=== PATIENT | male | born 1975 | race Caucasian/White ===

== ENCOUNTER 2020-05-23 17:10 | Emergency (ER) | payer OTHER, SELFPAY ==
--- NOTE | ~2020-05-23 | XR_ITS ---
EXAMINATION: XR chest 2V DATE: 05/23/2020 17:52 INDICATION: Left-sided chest pain TECHNIQUE: PA and lateral views of the chest are obtained. COMPARISON: None available FINDINGS: The lungs are free of acute opacities. There is no pleural effusion or pneumothorax. The ca rdiomediastinal silhouette is normal. The visualized bones and soft tissues are unremarkable. IMPRESSION: 1. No acute cardiopulmonary abnormality. Reviewed, dictated and finalized at location A. ING COORDINATOR
[2020-05-23 17:16] VITALS: BP 171/99; PULSE 112; PULSE 118; RESP 20; TEMP 36.6; O2SAT 100
--- NOTE | 2020-05-23 17:20 | ECG_ITS ---
Measurements Intervals [place] Rate: 113 P: 34 IA: 152 QRS: -27 QRSD: 96 T: 45 QT: 306 QTc: 421 Interpretive Statements SINUS TACHYCARDIA DELAYED PRECORDIAL R/S TRANSITION ABNORMAL ECG Electronically Signed On 05-24-2020 8:46:18 TRAIN STATION AGENT by Rey Narvaez D.O.
[2020-05-23 17:24] VITALS: PULSE 123
[2020-05-23 17:34] LABS: Basophils Absolute Auto 0.1 K/mm3 (0.0-0.1); Basophils Percent Auto 0.6 % (0.2-1.2); Eosinophils Absolute Auto 0.2 K/mm3 (0-0.3); Eosinophils Percent Auto 1.6 % (0-4.4); Hematocrit 49.7 % (42.0-52.0); Hemoglobin 17.1 g/dL (14.0-18.0); Immature Granulocyte Absolute 0.02 K/mm3 (0.00-0.031); Immature Granulocyte Percent A 0.2 % (0-0.5); Lymphocytes Absolute Auto 1.92 K/mm3 (0.9-3.2); Lymphocytes Percent Auto 19.3 % (18.3-44.2); Mean Corpuscular HGB Conc 34.4 g/dl (32-36); Mean Corpuscular Hemoglobin 28.7 pg (26-34); Mean Corpuscular Volume 83.4 fl (80-100); Mean Platelet Volume 9.3 fl (7.4-10.4); Monocytes Absolute Auto 0.6 K/mm3 (0.1-0.6); Monocytes Percent Auto 5.8 % (2.6-8.5); Neutrophils Absolute Auto 7.2 K/mm3 (1.3-6.7); Neutrophils Percent Auto 72.5 % (45.5-73.1); Platelet Count Result 281 k/mm3 (150-375); Red Blood Count 5.96 M/mm3 (4.6-6.20)
[2020-05-23 17:44] LABS: INR 0.9; Prothrombin Time 12.3 Seconds (11.1-14.7)
[2020-05-23 17:45] LABS: Partial Thromboplastin Time 28.1 SECONDS (22.3-36.8)
[2020-05-23 17:49] LABS: Anion Gap 9 mmol/L (8-16); Blood Urea Nitrogen 15 mg/dL (9-20); Calcium 9.6 mg/dL (8.4-10.2); Carbon Dioxide 33 mmol/L (22-30); Chloride 100 mmol/L (98-107); Estimated CRCL calculation 68 ml/min; Estimated Glomerular Filt Rate > 60; Glucose 108 mg/dL (75-110); Sodium 142 mmol/L (137-145)
[2020-05-23 17:50] VITALS: BP 132/108; PULSE 113; RESP 22; O2SAT 99
[2020-05-23 18:01] VITALS: BP 122/94; PULSE 116; RESP 22; O2SAT 97
[2020-05-23 18:01] LABS: Troponin I < 0.012 ng/mL (0.000-0.034)
[2020-05-23] MEDS: ASPIRIN 81 MG CHEWABLE TABLET 324 MG PO (18:09)
[2020-05-23 18:34] VITALS: BP 116/87; PULSE 115; RESP 20; O2SAT 97
--- NOTE | 2020-05-23 18:34 | ED.GENADULT ---
HPI - General Adult General Chief complaint: Chest Pain Stated complaint: CP Time Seen by Provider: 05/23/20 17:20 Source: patient Mode of arrival: ambulatory Limitations: no limitations History of Present Illness HPI narrative: Patient presenting from [facility] primary care's office Ayan Zelaya for EKG and troponin further evaluation as the patient presented to his establish care appointment complaining of 2 weeks of intermittent chest pain. Patient states he has a mother and grandmother who had heart attacks in their 40s and the provider became concerned as the EKG machine was not working. Patient denies shortness of breath, diaphoresis, radiation of chest pain. Patient states at this time he feels very dull pressure but denies any sharp stabbing pains. Patient denies fever, chills, nausea, vomiting, diarrhea. Related Data Home Medications Medication Instructions Recorded Confirmed No Home Medications 05/23/20 05/23/20 Allergies Allergy/AdvReac Type Severity Reaction Status Date / Time No Known Allergies Allergy Unknown Verified 05/23/20 17:20 Review of Systems Review of Systems: Narrative: CONSTITUTIONAL: Denies fever, chills, or sweats. EYES: Denies visual changes, redness, or discharge. ENT: Denies rhinorrhea, congestion, sore throat, or otalgia. CARDIOVASCULAR: Reports chest pressure denies chest pain, palpitations, or edema. RESPIRATORY: Denies cough or dyspnea. GASTROINTESTINAL: Denies abdominal pain, nausea, vomiting, or diarrhea. GENITOURINARY: Denies dysuria or hematuria. SKIN: Denies rash or itching. MUSCULOSKELETAL: Denies back pain, joint pain, or myalgia. NEUROLOGIC: Denies headache, numbness, dizziness, or weakness. PSYCHIATRIC: Denies anxiety or depression. [facility] Family History Family History (Updated 01/19/14 @ 07:13 by DOCTOR UNKNOWN) Mother Family history of coronary artery disease Grandparent Diabetes mellitus Social History Social History Smoking status: Never smoker Alcohol intake: current Exam Narrative: Exam Narrative: GENERAL: Well-appearing, well-nourished, and in no acute distress. Patient smiling and talking normally. Patient does not appear to be in any discomfort. HEAD: Normocephalic, atraumatic. EYES: PERRLA and EOMI. NECK: Supple. No adenopathy or masses. CHEST: Clear to auscultation. No respiratory distress. No wheezes rales or rhonchi HEART: Slightly tachycardic rate and normal rhythm. No murmur heard. Normal peripheral pulses. EXTREMITIES: Normal range of motion. No edema. SKIN: Warm, dry, no rash. NEURO: No focal deficits. Alert and oriented x3. PSYCH: Normal mood and affect. Course Vital Signs Vital signs: Vital Signs Temperature 97.8 F 05/23/20 17:16 Pulse Rate 112 H 05/23/20 17:16 Respiratory Rate 05/23/20 17:16 Blood Pressure 171/99 H 05/23/20 17:16 Pulse Oximetry 10 L 05/23/20 17:16 Temperature 97.8 F 05/23/20 17:16 Pulse Rate 110 H 05/23/20 19:01 Respiratory Rate 22 H 05/23/20 19:01 Blood Pressure 116/87 05/23/20 19:01 Pulse Oximetry 98 05/23/20 19:01 Medical Decision Making MDM Narrative Medical decision making narrative: Patient is not toxic or diaphoretic. Patient initially presented with elevated blood pressure but his blood pressure has decreased to 116/87. He has some mild tachycardia but denies any chest pain, pain with inspiration or shortness of breath. Patient states that his pressure is very mild and not concerning. He has been instructed of the importance of following up with PCP for further evaluation of his symptoms and possible ECHO, stress test, and cardiology referral. He has been instructed to return to the ER if he has any emergent symptoms. Patient is in agreement with plan and is ready to be discharged home. Vital Signs Vital Signs: Vital Signs Temperature 97.8 F 05/23/20 17:16 Pulse Rate 112 H 05/23/20 17:16 Respiratory Rate 05/23/20 17:16 Blood Pressure 171/
[2020-05-23 19:01] VITALS: BP 116/87; PULSE 110; RESP 22; O2SAT 98
== END 2020-05-23 19:02 | disposition home or self-care (01) ==
PROVIDERS: Emergency Provider Emergency Medicine
DX: R07.89 Other chest pain (principal)
CPT/HCPCS: 36415; 71046; 80048; 84484; 85025; 85610; 85730; 93005; 99284; A9270

== ENCOUNTER 2023-06-05 00:26 | Observation (INO) | payer OTHER, SELFPAY ==
[2023-06-05] VITALS (23 sets, daily range): BP systolic 102–142; BP diastolic 61–102; PULSE 87–123; RESP 14–20; TEMP 36.6–37.2; O2SAT 95–100; BMI 24.8
--- NOTE | ~2023-06-05 | XR_ITS ---
Clinical Indication: Chest pain PA and lateral views of the chest: Comparison: 05/23/2020 Findings: The lungs are clear, without evidence of focal consolidation or pleural effusion. Cardiome diastinal silhouette is within normal limits. Bones and soft tissues are unremarkable. Impression: Normal chest. Reviewed, dictated and finalized at location . P MACHINE OPERATOR Impression: Normal chest.
--- NOTE | 2023-06-05 00:27 | ECG_ITS ---
Measurements Intervals [place] Rate: 81 P: 33 OR: 151 QRS: -28 QRSD: 104 T: 57 QT: 344 QTc: 400 Interpretive Statements SINUS RHYTHM BORDERLINE R WAVE PROGRESSION, ANTERIOR LEADS BASELINE ARTIFACT- I, II, III, AVR, AVL, AVF BORDERLINE ECG COMPARED TO ECG 05/23/2020 17:23:11 SINUS RHYTHM NOW PRESENT Electronically Signed On 06-05-2023 6:40:55 RFID MANAGER by Rey Narvaez D.O.
[2023-06-05] MEDS: ASPIRIN 81 MG CHEWABLE TABLET 324 MG PO (00:41)
[2023-06-05 00:47] LABS: Basophils Absolute Auto 0.1 K/mm3 (0.0-0.1); Basophils Percent Auto 0.4 % (0.2-1.2); Eosinophils Absolute Auto 0.1 K/mm3 (0-0.3); Eosinophils Percent Auto 0.7 % (0-4.4); Hemoglobin 16.3 g/dL (14.0-18.0); Immature Granulocyte Absolute 0.05 K/mm3 (0.00-0.031); Immature Granulocyte Percent A 0.4 % (0-0.5); Lymphocytes Absolute Auto 1.63 K/mm3 (0.9-3.2); Lymphocytes Percent Auto 12.2 % (18.3-44.2); Mean Corpuscular HGB Conc 32.6 g/dl (32-36); Mean Corpuscular Volume 85.8 fl (80-100); Mean Platelet Volume 9.9 fl (7.4-10.4); Monocytes Absolute Auto 0.6 K/mm3 (0.1-0.6); Monocytes Percent Auto 4.3 % (2.6-8.5); Neutrophils Absolute Auto 10.9 K/mm3 (1.3-6.7); Platelet Count Result 242 k/mm3 (150-375); Red Blood Count 5.83 M/mm3 (4.6-6.20); Red Cell Distribution Width 12.6 % (11.5-14.5); White Blood Count 13.3 K/mm3 (4.5-10.0)
[2023-06-05 00:57] LABS: Prothrombin Time 13.1 Seconds (11.1-14.7)
[2023-06-05 00:58] LABS: Partial Thromboplastin Time 24.1 SECONDS (22.3-36.8)
[2023-06-05 01:02] LABS: Alanine Aminotransferase 44 U/L (6-50); Albumin Level 4.7 g/dL (3.5-5.1); Alkaline Phosphatase 68 U/L (38-126); Anion Gap 12 mmol/L (8-16); Aspartate Amino Transferase 36 U/L (17-59); Bilirubin,Total 1.1 mg/dL (0.2-1.3); Blood Urea Nitrogen 24 mg/dL (9-20); Calcium 9.2 mg/dL (8.4-10.2); Carbon Dioxide 28 mmol/L (22-30); Chloride 98 mmol/L (98-107); Estimated CRCL calculation 60 ml/min; Estimated Glomerular Filt Rate > 60; Glucose 121 mg/dL (65-110); Lipase 178 U/L (23-300); Potassium 4.2 mmol/L (3.4-5.0); Sodium 138 mmol/L (137-145)
[2023-06-05 01:12] LABS: Troponin I < 0.012 ng/mL (0.000-0.034)
--- NOTE | 2023-06-05 02:52 | PM.IMHP ---
H&P: HPI History of Present Illness Date/Time: 06/05/23 02:52 Chief Complaint: near syncope Narrative: This is a 48-year-old male with no significant past medical history presents to the emergency room after having episode of palpitations according to patient his to showed heart rate in the 140's he felt lightheaded, dizzy upon standing had large bowel movement, had some chest discomfort as well. At the time of my visit patient is back to his usual had been in his usual state of health as well prior to this episode. Preliminary workup has been essentially nonrevealing and placed in observation for further evaluation management and treatment. Review of Systems Review of Systems: Palpitations, near-syncope, bowel movement uncontrolled Constitutional: Constitutional: Denies chills, Denies fatigue, Denies fever(s), Denies malaise, Denies night sweats and Denies weakness Eyes: Eyes: Denies change in vision ENT: Denies dysphagia, Reports dizziness and Denies odynophagia Cardiovascular: Cardiovascular: Reports rapid heart rate, Reports lightheadedness and Reports palpitations Respiratory: Respiratory: Denies chest congestion, Denies cough and Denies dyspnea Gastrointestinal: Gastrointestinal: Denies abdominal pain, Denies dyspepsia, Denies heartburn, Denies nausea and Denies vomiting Genitourinary: Genitourinary: Denies dysuria Musculoskeletal: Musculoskeletal: Denies arthralgias Integumentary/Breasts: Skin/Breast: Denies rash Neurologic: Denies focal weakness and Denies Sensory deficit (Neuro) Psychiatric: Psychiatric: Reports no additional psychiatric complaints and Reports as per HPI Endocrine: Endocrine: Denies cold intolerance, Denies fatigue, Denies flushing, Denies heat intolerance, Denies polyphagia, Denies polydipsia and Denies palpitations Hematologic/Lymphatic: Hematologic/Lymphatic: Reports no additional hematologic/lymphatic complaints and Reports as per HPI Allergic/Immunologic: Allergic/Immunologic: Reports no additional allergic/immunologic complaints and Reports as per HPI PMF Family History Family History Mother Family history of coronary artery disease Grandparent Diabetes mellitus Social History Social History Smoking status: Never smoker Alcohol intake: current Drinks per week: 2 Substance use: never Substance use type: does not use Do You Feel Safe in your Home?: Yes Lack of Transportation: No Lack of Food: Never True Current Housing: I Have Housing Concerned About Future Housing: No Difficulty Paying Gas/Electric Bills: No Difficulty Paying for Meds: No Currently Unemployed: No Education: Associate Degree Difficulty w/ Childcare or Family Care: No Spiritual care concerns: No Meds Home Medications and Allergies Home Medications Medication Instructions Recorded Confirmed Type atorvastatin 10 mg tablet 10 mg PO DAILY 06/05/23 06/05/23 History lisinopril 5 mg tablet 5 mg PO DAILY 06/05/23 06/05/23 History Allergies Allergy/AdvReac Type Severity Reaction Status Date / Time No Known Allergies Allergy Unknown Verified 05/23/20 17:20 Vital Signs Vital Signs - 24 hr 06/05/23 00:28 06/05/23 00:38 Temperature 98 F Pulse Rate 88 91 Respiratory Rate 18 20 Blood Pressure 142/102 H 121/92 H Pulse Oximetry 95 100 Oxygen Delivery Room Air Exam Narrative: Patient is laying in a stretcher Const: General: comfortable, no acute distress, well developed, alert, awake and average body habitus Nutritional Appearance: average body habitus Orientation/consciousness: patient oriented x3 Other: Well-appearing HENMT: Head: normal to inspection, normocephalic and atraumatic Ears: hearing grossly normal bilaterally Face/Nose/Sinus: normal facial exam Face and sinus: normal facial exam Eyes: General
--- NOTE | 2023-06-05 02:54 | ED.GENADULT ---
HPI - General Adult General Chief complaint: Chest Pain Stated complaint: chest apin Time Seen by Provider: 06/05/23 02:30 History of Present Illness HPI narrative: patient 48-year-old gentleman presents emergency department with chief complaint of chest discomfort and palpitations patient reports that he was laying down woke up had chest discomfort and his heart rate was going about 145 patient states he got up felt lightheaded and was having tightness in the left side of his chest radiating to his left arm patient states that he when he got lightheaded he had difficulty controlling his bowels but did not actually pass out but did defecate on the floor the patient reports he did not fall to the floor and denies trauma patient states the palpitations resolved when EMS arrived and reports that currently he is feeling better Related Data Home Medications Medication Instructions Recorded Confirmed No Home Medications 05/23/20 05/23/20 Allergies Allergy/AdvReac Type Severity Reaction Status Date / Time No Known Allergies Allergy Unknown Verified 05/23/20 17:20 Review of Systems Review of Systems: A 10 system review of systems was completed on the patient and is negative except for what is stated in the HPI. Nursing and ancillary documentation was reviewed. [facility] Family History Family History Mother Family history of coronary artery disease Grandparent Diabetes mellitus Social History Social History Smoking status: Never smoker Alcohol intake: current Exam Narrative: GENERAL: Well-appearing, well-nourished, and in no acute distress. HEAD: Normocephalic, atraumatic. EYES: PERRLA and EOMI. ENT: Nares clear, no rhinorrhea or epistaxis. Mucous membranes moist. NECK: Supple. CHEST: Clear to auscultation. No respiratory distress. HEART: Regular rate and rhythm. No murmur heard. Normal peripheral pulses. ABDOMEN: Soft, nontender, nondistended, normal active bowel sounds. EXTREMITIES: Normal range of motion. No edema. SKIN: Warm, dry, no rash. NEURO: No focal deficits. Alert and oriented x3. PSYCH: Normal mood and affect. Course Vital Signs Vital signs: Vital Signs Temperature 36.6 C 06/05/23 00:28 Pulse Rate 88 06/05/23 00:28 Respiratory Rate 18 06/05/23 00:28 Blood Pressure 142/102 H 06/05/23 00:28 Pulse Oximetry 95 06/05/23 00:28 Oxygen Delivery Room Air 06/05/23 00:28 Temperature 36.6 C 06/05/23 00:28 Pulse Rate 91 06/05/23 00:38 Respiratory Rate 20 06/05/23 00:38 Blood Pressure 121/92 H 06/05/23 00:38 Pulse Oximetry 100 06/05/23 00:38 Oxygen Delivery Room Air 06/05/23 00:28 Medical Decision Making MDM Narrative Medical decision making narrative: differential diagnosis includes dysrhythmia, ACS, atypical chest pain, EKG showed no acute ischemic changes initial troponin was negative the patient has been observed to monitor emergency department Vital Signs Vital Signs: Vital Signs Temperature 36.6 C 06/05/23 00:28 Pulse Rate 88 06/05/23 00:28 Respiratory Rate 18 06/05/23 00:28 Blood Pressure 142/102 H 06/05/23 00:28 Pulse Oximetry 95 06/05/23 00:28 Oxygen Delivery Room Air 06/05/23 00:28 Temperature 36.6 C 06/05/23 00:28 Pulse Rate 91 06/05/23 00:38 Respiratory Rate 20 06/05/23 00:38 Blood Pressure 121/92 H 06/05/23 00:38 Pulse Oximetry 100 06/05/23 00:38 Oxygen Delivery Room Air 06/05/23 00:28 Lab Data 06/05/23 00:35 06/05/23 00:35 Labs: Lab Results 06/05/23 Range/Units 00:35 WBC 13.3 H (4.5-10.0) K/mm3 RBC 5.83 (4.6-6.20) M/mm3 Hgb 16.3 (14.0-18.0) g/dL Hct 50.0 (42.0-52.0) % MCV 85.8 (80-100) fl MCH 28.0 (26-34) pg MCHC 32.6 (32-36) g/dl RDW 12.6 (11.5-14.5) % Plt Count 242 (150-
--- NOTE | 2023-06-05 03:29 | ECG_ITS ---
Measurements Intervals [place] Rate: 106 P: 22 RI: 155 QRS: -30 QRSD: 96 T: 37 QT: 306 QTc: 407 Interpretive Statements SINUS TACHYCARDIA POOR R WAVE PROGRESSION, ANTERIOR LEADS ABNORMAL ECG COMPARED TO ECG 06/05/2023 00:32:53 SINUS TACHYCARDIA NOW PRESENT Electronically Signed On 06-05-2023 6:42:23 TECHNICAL COMMUNICATOR by Rey Narvaez D.O.
[2023-06-05 04:07] LABS: Troponin I < 0.012 ng/mL (0.000-0.034)
--- NOTE | 2023-06-05 04:14 | ADMGEN ---
This patient, Jason Fabian, was admitted to IMU Room 207-01. Patient/family oriented to hospital policies and general routines including ID bracelet, bed and alarms, visiting hours, pain management, procedures, bathroom and other care routines, personal items, smoking policy, room service/diet, and visiting hours. Information on how to activate the Rapid Response Team has been discussed. Patient/Family are encouraged to report perceived risks to care and to ask questions if they do not understand what they are told or what they should do.
[2023-06-05 07:17] LABS: Troponin I < 0.012 ng/mL (0.000-0.034)
[2023-06-05] MEDS: ASPIRIN 81 MG CHEWABLE TABLET PO (09:21)
--- NOTE | 2023-06-05 10:55 | PM.IMPN ---
Progress Note: A&P Assessment and Plan (1) Chest pain: Code(s): R07.9 - Chest pain, unspecified Status: Acute Assessment and Plan: Resolved, appreciate cardiology consultation Troponin negative x3 Likely musculoskeletal versus GI in etiology (2) Palpitations: Code(s): R00.2 - Palpitations Status: Acute Assessment and Plan: Recurred, give 2 L fluid bolus and reassess (3) Near syncope: Code(s): R55 - Syncope and collapse Status: Acute Assessment and Plan: Likely to be vasovagal in nature Plan DVT prophylaxis with SCDs GI prophylaxis not indicated Code status full code Subjective Date/time seen: 06/05/23 10:55 Interval history: 48-year-old male with no past medical history presenting with palpitations and being worked up for sinus tachycardia. No overnight events noted. No chest pain or shortness of breath. No nausea, vomiting or diarrhea. No fevers or chills. Review of Systems Review of Systems: 12 point review of systems was assessed and was negative except as noted in the HPI Exam Narrative: General: No acute distress, alert and oriented per baseline HEENT: Atraumatic, normocephalic, mucous membranes moist CV: Tachycardia, S1, S2 Lungs: Clear to auscultation bilaterally, no rales or crackles noted, no wheezes, good air entry Abdomen: Soft, nontender, nondistended Extremities: Normal to inspection Skin: No rashes noted, no lesions or wounds seen Psych: Euthymic, normal affect Objective Data Vital Signs Vital Signs: Vital Signs - 24 hr 06/05/23 00:28 06/05/23 00:38 06/05/23 03:04 Temperature 98 F Pulse Rate 88 91 109 H Respiratory Rate 18 20 Blood Pressure 142/102 H 121/92 H Pulse Oximetry 95 100 Oxygen Delivery Room Air 06/05/23 00:36 06/05/23 02:52 06/05/23 03:01 Temperature Pulse Rate 89 117 H 112 H Respiratory Rate 17 18 17 Blood Pressure 121/93 H 130/91 H 116/88 Pulse Oximetry 99 99 Oxygen Delivery 06/05/23 03:49 06/05/23 04:06 06/05/23 04:39 Temperature 98.8 F Pulse Rate 106 H 116 H 122 H Respiratory Rate 15 15 Blood Pressure 117/75 Pulse Oximetry 98 95 Oxygen Delivery 06/05/23 05:55 06/05/23 08:03 Temperature 98.4 F Pulse Rate 122 H 120 H Respiratory Rate 16 Blood Pressure 121/78 Pulse Oximetry 98 Oxygen Delivery Meds/Results Medications: Active Medications Generic Name Dose Route Start Last Admin Trade Name Stantonq PRN Reason Stop Dose Admin Aspirin 81 mg 06/05/23 08:00 06/05/23 09:21 Aspirin 81 Mg Chewable Tablet PO 81 mg DAILY@0800 OSBALDO Administration Perflutren Lipid Microsphere 0 ml 06/05/23 02:58 Perflutren Lipid Microspheres 1.5 Ml Vial Diluted To 10 Ml Total Volume IV PUSH 06/08/23 02:59 ONCE PRN adequate visualization Protocol Radiology Results: ITS Impressions Chest X-Ray 06/05/23 05:51 Impression: Normal chest. Labs Labs: Laboratory Results - last 24 hr 06/05/23 06/05/23 06/05/23 00:35 03:37 06:12 WBC 13.3 H RBC 5.83 Hgb 16.3 Hct 50.0 MCV 85.8 MCH 28.0 MCHC 32.6 RDW 12.6 Plt Count 242 MPV 9.9 Immature Gran % (Auto) 0.4 Neut % (Auto) 82.0 H Lymph % (Auto) 12.2 L [place] % (Auto) 4.3 Eos % (Auto) 0.7 Baso % (Auto) 0.4 Lymph # (Auto) 1.63 [place] # (Auto) 0.6 Eos # (Auto) 0.1 Baso # (Auto) 0.1 Abs Immat Gran (auto) 0.05 H Absolute Neuts (auto) 10.9 H Absolute Nucleated RBC 0.0 Nucleated RBC % 0.0 PT 13.1 INR 1.0 APTT 24.1 Sodium 138 Potassium 4.2 Chloride 98 Carbon Dioxide 28 Anion Gap 12 BUN 24 H Creatinine 1.10 Estim Creat Clear Calc 60 Estimated GFR > 60 Glucose 121 H Calcium 9.2 Total Bilirubin 1.1 AST 36 ALT 44 Alkaline Phosphatase 68 Troponin I < 0.012 < 0.012 < 0.012 Total Protein 8.0 Albumin 4.7 Lipas
--- NOTE | 2023-06-05 13:09 | PM.CNCAR ---
Assessment and Plan Assessment and plan (1) Sinus tachycardia: Code(s): R00.0 - Tachycardia, unspecified Status: Acute Assessment and Plan: Elevated heart rate consistent with sinus tachycardia with physiologic. Telemetry is not consistent with atrial tachycardia or other SVT with a noted physiological rise and fall of his heart rate on review of telemetry. No prolonged pauses or high-grade AV blocks. No atrial fibrillation atrial flutter. He reports palpitations in that he is aware of his elevated heart rate intermittently but is consistent with sinus tachycardia as above. Patient presented with GI symptoms with nausea, abdominal discomfort, dizziness and elevated heart rate in some degree of distress with incontinence of stool prior to admission. Patient had another similar episode with noted sinus tachycardia with heart rate up to 140-150 beats per minute which then promptly slowed. He has been NPO and other than at admission has not received additional IV fluids. Serial troponins negative x4 rule out for myocardial infarction. He is not reporting symptoms suggestive of angina at present or prior to admission. He reports family history premature atherosclerosis mother dying of heart attack age 46. He has no edema, orthopnea PND. He has no other complaints of bleeding, recent illnesses sick contacts. He has not passed out at any time. His laboratory studies are remarkable for a leukocytosis with neutrophilic shift but he has been afebrile. His BUN is elevated most likely related to intravascular volume depletion. Remainder of his laboratory studies are unremarkable as is his chest x-ray. Check TSH, urinalysis. Assess for underlying infectious etiology although symptoms potentially suggestive of viral gastroenteritis there is no other clear cardiovascular explanation for his symptoms. I will give additional IV fluids and allow patient to eat as he appears somewhat clinically dry on exam. 2D echo pending. Will review when available. Further recommendations to follow after. Provided there are no other significant pathology identified or LV dysfunction disposition per hospitalist service to follow up with primary care physician on outpatient basis. He may follow up with us on an outpatient basis. Discussed at length with the patient who verbalized understanding agreed with plan of care. If heart rate does not improve may consider outpatient quality assurance monitor after discharge for 72 hours. In general would recommend evaluation for underlying contributing and treatable reversible causes as opposed to AV eze blocking agents to control heart rate without clear explanation. Discussed with hospitalist service. If heart rate improves with IV fluids and he is not orthostatic from a cardiac perspective he may be discharged home to follow up as an outpatient for Holter monitor and follow-up in the office. Further recommendation to follow after review of the echo. (2) Near syncope: Code(s): R55 - Syncope and collapse Status: Acute Assessment and Plan: Give additional IV fluids, allow patient to eat. Check orthostatic vital signs. Check TSH. Ambulate with caution. Rise slowly from seated position to avoid risk for falls and injuries. Avoid alcohol and caffeine. (3) Hypertension: Code(s): I10 - Essential (primary) hypertension Status: Acute Assessment and Plan: BP stable. Caution with lisinopril, check orthostatic vital signs. (4) Hyperlipidemia: Code(s): E78.5 - Hyperlipidemia, unspecified Status: Acute Assessment and Plan: May resume atorvastatin 10 mg at bedtime. (5) Palpitations: Code(s): R00.2 - Palpitations Status: Acute Assessment and Plan: Secondary to where its of his heart rate but without clear SVT, atrial fibrillation, atrial flutter or other pathologic arrhythmia as explanation. History of Present Illness History of Present Illness Co
[2023-06-05] MEDS: lisinopriL 5 MG TABLET PO (13:53)
[2023-06-05] MEDS: ATORVASTATIN 10 MG TABLET PO (13:53)
--- NOTE | 2023-06-05 14:55 | ECHO_ITS ---
Patient Info Name: Jason Fabian Age: 48 years : 1975 Gender: Male Ht: 62 in Wt: 136 lbs BSA: 1.65 m2 HR: 107 bpm BP: 127 / 77 mmHg Heart Rhythm: Tachycardia, Sinus Rhythm Technical Quality: Good Exam Date: 06/05/2023 3:14 PM Exam Location: Echo Lab Patient Status: Inpatient Admit Date: 06/05/2023 Staff Ordering Physician: Manuel Resendez MD Continuous Improvement Black Belt: Adry Umana RDCS Attending Provider: Janette Mckenzie MD Referring Physician: Mal ACOSTA; Exam Type: CA echo doppler color flow Study Info Indications R07.9 - Chest pain, unspecified Complete two-dimensional, color flow and Doppler transthoracic echocardiogram is performed. Summary 1. Complete two-dimensional, color flow and Doppler transthoracic echocardiogram is performed. 2. Left ventricular chamber dimension is normal. 3. Left ventricular systolic function is normal, estimated at >70%. 4. There is upper limits of normal left ventricular wall thickness. 5. The left ventricular diastolic function is grade I diastolic dysfunction. 6. There is no mitral valve regurgitation. 7. There is no aortic valve stenosis. 8. There is trace tricuspid valve regurgitation. 9. No pulmonary hypertension, estimated pulmonary arterial systolic pressure is 23 mmHg. Left Ventricle Left ventricular chamber dimension is normal. Left ventricular systolic function is normal, estimated at >70%. There is upper limits of normal left ventricular wall thickness. The left ventricular diastolic function is grade I diastolic dysfunction. Right Ventricle Right ventricular chamber dimension is normal. Right ventricular systolic function is normal. Left Atria Left atrial chamber dimension is normal. Right Atria Right atrial chamber dimension is normal. Aortic Valve The aortic valve is trileaflet. There is no aortic valve stenosis. There is no aortic valve regurgitation. Pulmonic Valve The pulmonic valve is normal. There is trace pulmonic regurgitation. Mitral Valve The mitral valve has normal leaflets. There is no mitral valve regurgitation. Tricuspid Valve The tricuspid valve leaflets are normal. There is trace tricuspid valve regurgitation. No pulmonary hypertension, estimated pulmonary arterial systolic pressure is 23 mmHg. Pericardium/Pleural The pericardium appears epicardial fat pad. There is no pericardial effusion. Aorta The aortic root size at the sinus of Valsalva is normal. The prox ascending aorta size is normal. Left Ventricular Outflow Tract Name Value Normal LVOT 2D LVOT Diameter 2.0 cm LVOT Doppler LVOT Peak Gradient 3 mmHg LVOT Mean Gradient 2 mmHg LVOT VTI 11 cm LVOT VTI/AV VTI Ratio 0.7 LVOT Stroke Volume 33 ml LVOT CO 3.9 l/min LVOT CI 2.3 l/min/m2 Pulmonic Valve Name Value Normal RVOT Doppler --
[2023-06-05] MEDS: SODIUM CHLORIDE 0.9% IV 1,000 ML 999 ML IV CONT ×2 (15:21)
[2023-06-05 15:29] LABS: Folic Acid 8.4 ng/mL (2.76->20)
[2023-06-06] VITALS (7 sets, daily range): BP systolic 100–115; BP diastolic 60; PULSE 68–88; RESP 15–20; TEMP 36.4–36.7; O2SAT 96–97
[2023-06-06 04:39] LABS: Basophils Percent Auto 0.4 % (0.2-1.2); Eosinophils Absolute Auto 0.1 K/mm3 (0-0.3); Eosinophils Percent Auto 1.9 % (0-4.4); Hematocrit 41.7 % (42.0-52.0); Hemoglobin 13.5 g/dL (14.0-18.0); Immature Granulocyte Absolute 0.01 K/mm3 (0.00-0.031); Immature Granulocyte Percent A 0.1 % (0-0.5); Lymphocytes Absolute Auto 1.24 K/mm3 (0.9-3.2); Lymphocytes Percent Auto 17.2 % (18.3-44.2); Mean Corpuscular HGB Conc 32.4 g/dl (32-36); Mean Corpuscular Hemoglobin 27.9 pg (26-34); Mean Corpuscular Volume 86.2 fl (80-100); Mean Platelet Volume 9.8 fl (7.4-10.4); Monocytes Absolute Auto 0.6 K/mm3 (0.1-0.6); Monocytes Percent Auto 7.6 % (2.6-8.5); Neutrophils Absolute Auto 5.2 K/mm3 (1.3-6.7); Neutrophils Percent Auto 72.8 % (45.5-73.1); Platelet Count Result 176 k/mm3 (150-375); Red Blood Count 4.84 M/mm3 (4.6-6.20); Red Cell Distribution Width 12.8 % (11.5-14.5); White Blood Count 7.2 K/mm3 (4.5-10.0)
[2023-06-06 05:15] LABS: Alanine Aminotransferase 27 U/L (6-50); Albumin Level 3.4 g/dL (3.5-5.1); Alkaline Phosphatase 59 U/L (38-126); Anion Gap 6 mmol/L (8-16); Aspartate Amino Transferase 20 U/L (17-59); Bilirubin,Total 0.6 mg/dL (0.2-1.3); Blood Urea Nitrogen 12 mg/dL (9-20); Calcium 7.8 mg/dL (8.4-10.2); Carbon Dioxide 25 mmol/L (22-30); Chloride 105 mmol/L (98-107); Estimated CRCL calculation 78 ml/min; Estimated Glomerular Filt Rate > 60; Glucose 111 mg/dL (65-110); Potassium 3.6 mmol/L (3.4-5.0); Sodium 136 mmol/L (137-145)
[2023-06-06] MEDS: lisinopriL 5 MG TABLET PO (09:49)
[2023-06-06] MEDS: ASPIRIN 81 MG CHEWABLE TABLET PO (09:49)
[2023-06-06] MEDS: ATORVASTATIN 10 MG TABLET PO (09:49)
--- NOTE | 2023-06-06 09:53 | PM.PNCARD ---
Progress Note: A&P Assessment and Plan (1) Sinus tachycardia: Code(s): R00.0 - Tachycardia, unspecified Status: Acute Assessment and Plan: Elevated heart rate consistent with sinus tachycardia with physiologic. Telemetry is not consistent with atrial tachycardia or other SVT with a noted physiological rise and fall of his heart rate on review of telemetry. No prolonged pauses or high-grade AV blocks. No atrial fibrillation atrial flutter. Echoes unremarkable with ejection fraction of 70%. (2) Near syncope: Code(s): R55 - Syncope and collapse Status: Acute Assessment and Plan: TSH normal. Fluids given (3) Hypertension: Code(s): I10 - Essential (primary) hypertension Status: Acute Assessment and Plan: BP stable. Caution with lisinopril, (4) Hyperlipidemia: Code(s): E78.5 - Hyperlipidemia, unspecified Status: Acute Assessment and Plan: Continue atorvastatin 10 mg at bedtime. (5) Palpitations: Code(s): R00.2 - Palpitations Status: Acute Assessment and Plan: Secondary to where its of his heart rate but without clear SVT, atrial fibrillation, atrial flutter or other pathologic arrhythmia as explanation. Subjective Date/time seen: 06/06/23 09:53 Interval history: 48-year-old male with no past medical history presenting with palpitations and being worked up for sinus tachycardia. Date of service 06/06/2023: Feels okay. No active complaints of chest pain shortness of breath Review of Systems Review of Systems: Remainder of the review of systems is otherwise negative aside from that noted in the HPI. All systems reviewed & are unremarkable except as noted in HPI and below Constitutional: Constitutional: Reports as per HPI and Reports no additional constitutional complaints Eyes: Eyes: Reports as per HPI and Reports no additional eye complaints ENT: Reports system reviewed and no additional complaints, except as documented and Reports as per HPI Cardiovascular: Cardiovascular: Reports as per HPI and Reports no additional cardiovascular complaints Respiratory: Respiratory: Reports as per HPI and Reports no additional respiratory complaints Gastrointestinal: Gastrointestinal: Reports as per HPI and Reports no additional gastrointestinal complaints Genitourinary: Genitourinary: Reports no additional male genitourinary complaints and Reports as per HPI Musculoskeletal: Musculoskeletal: Reports no additional musculoskeletal complaints and Reports as per HPI Integumentary/Breasts: Skin/Breast: Reports system reviewed and no additional complaints, except as docu and Reports as per HPI Neurologic: Reports system reviewed and no additional complaints, except as documented and Reports as per HPI Psychiatric: Psychiatric: Reports no additional psychiatric complaints and Reports as per HPI Endocrine: Endocrine: Reports no additional endocrine complaints and Reports as per HPI Hematologic/Lymphatic: Hematologic/Lymphatic: Reports no additional hematologic/lymphatic complaints and Reports as per HPI Allergic/Immunologic: Allergic/Immunologic: Reports no additional allergic/immunologic complaints and Reports as per HPI Exam Narrative: General: Pleasant male lying supine in bed breathing comfortably in full sentences, well developed, alert and oriented x3. No apparent distress, comfortable, pleasant, and cooperative. Head: atraumatic, normocephalic Eyes: EOM intact, sclerae anicteric, conjunctivae unremarkable Ears/Nose: external inspection of ears and nose were grossly normal Mouth/Throat: oral mucosa pink and moist Neck: supple, normal range of motion, no jugular venous distention or carotid bruits, thyroid nonpalpable, trachea midline. Cardiac: Tachycardic, regular rhythm, normal S1-S2, no murmurs No gallops or rubs. Lungs: Clear to auscultation bilaterally, no rales, wheezes, or rhonchi.
--- NOTE | 2023-06-06 11:33 | PM.DS ---
DS: Admitting Diagnosis Discharge Date 06/06/23 Admitting Diagnosis palpitations DS: Discharge Diagnosis Discharge Diagnosis (1) Chest pain: Code(s): R07.9 - Chest pain, unspecified Status: Acute Assessment and Plan: Resolved, appreciate cardiology consultation Troponin negative x3 Likely musculoskeletal versus GI in etiology (2) Palpitations: Code(s): R00.2 - Palpitations Status: Acute Assessment and Plan: Recurred, give 2 L fluid bolus and reassess (3) Near syncope: Code(s): R55 - Syncope and collapse Status: Acute Assessment and Plan: Likely to be vasovagal in nature Plan DVT prophylaxis with SCDs GI prophylaxis not indicated Code status full code DS: Summary Hospital Course Hospital Course: 48-year-old male with no past medical history presenting with palpitations and being worked up for sinus tachycardia. Cardiology was consulted and recommended workup with TSH, echo and monitoring of telemetry. Everything came back normal, therefore discharge was recommended with outpatient follow-up in their office for Holter monitor. Symptoms to be secondary to dehydration due to acute viral gastroenteritis episode prior to admission. Please see above and med rec for details. All symptoms resolved and patient was discharged in stable condition with close outpatient follow-up. Time Spent with Patient Time attestation: Total time spent providing and/or coordinating discharge services: Exam Narrative: General: No acute distress, alert and oriented per baseline HEENT: Atraumatic, normocephalic, mucous membranes moist CV: Tachycardia, S1, S2 Lungs: Clear to auscultation bilaterally, no rales or crackles noted, no wheezes, good air entry Abdomen: Soft, nontender, nondistended Extremities: Normal to inspection Skin: No rashes noted, no lesions or wounds seen Psych: Euthymic, normal affect DS: Data Data Completed and Pending Labs on day of discharge: Labs from last 24 hours 06/06/23 06/05/23 03:58 06:10 WBC 7.2 RBC 4.84 Hgb 13.5 L Hct 41.7 L MCV 86.2 MCH 27.9 MCHC 32.4 RDW 12.8 Plt Count 176 MPV 9.8 Immature Gran % (Auto) 0.1 Neut % (Auto) 72.8 Lymph % (Auto) 17.2 L Reynolds % (Auto) 7.6 Eos % (Auto) 1.9 Baso % (Auto) 0.4 Lymph # (Auto) 1.24 Reynolds # (Auto) 0.6 Eos # (Auto) 0.1 Baso # (Auto) 0.0 Abs Immat Gran (auto) 0.01 Absolute Neuts (auto) 5.2 Absolute Nucleated RBC 0.0 Nucleated RBC % 0.0 Sodium 136 L Potassium 3.6 Chloride 105 Carbon Dioxide 25 Anion Gap 6 L BUN 12 D Creatinine 0.80 Estim Creat Clear Calc 78 Estimated GFR > 60 Glucose 111 H Calcium 7.8 L Total Bilirubin 0.6 AST 20 ALT 27 Alkaline Phosphatase 59 Total Protein 6.0 L Albumin 3.4 L Vitamin B12 650.0 Folate 8.4 TSH 3.190 Discharge Plan Discharge Attending physician on discharge: Rhoda Tiwari Consulting providers: Les Grant Discharging Clinician: Rhoda Tiwari Patient Disposition: Home, Self-Care Activity: as tolerated Diet: as tolerated Patient Instructions: Antibiotic Form, Chest Pain (DC), Near Syncope (GEN) Stand Alone Forms: General Discharge Information Follow-up/Referrals: UNKNOWN,DOCTOR [Primary Care Provider] - Discharge Medications: New aspirin [Children's Aspirin] 81 mg Tablet,Chewable 81 mg PO DAILY@0800 30 Days Qty: 30 0RF Continued atorvastatin 10 mg tablet 10 mg PO DAILY lisinopril 5 mg tablet 5 mg PO DAILY Date of admission: 06/05/23 03:24 Primary Care Provider: UNKNOWN,DOCTOR Admitting Provider: Janette Mckenzie V. Attending physician on admission: Janette Mckenzie V. Condition: Stable
== END 2023-06-06 11:59 | disposition home or self-care (01) ==
LOC: ANHED 02:58 → ANHIMU 04:44
PROVIDERS: Admitting Provider Internal Medicine; Emergency Provider Emergency Medicine; Visit Provider Student in an Organized Health Care Education/Training Program
DX: R07.9 Chest pain, unspecified (principal); R00.0 Tachycardia, unspecified; R55 Syncope and collapse; I11.9 Hypertensive heart disease without heart failure; E78.5 Hyperlipidemia, unspecified; F10.90 Alcohol use, unspecified, uncomplicated; R94.31 Abnormal electrocardiogram [ECG] [EKG]; Z79.899 Other long term (current) drug therapy
CPT/HCPCS: 36415; 71046; 80053; 82607; 82746; 83690; 84443; 84484; 85025; 85610; 85730; 93005; 93306; 96360; 96361; 99285; A9270; G0378; J7030